=== PATIENT | female | born 2000 | race Two or more races ===

== ENCOUNTER 2024-03-30 18:25 | Inpatient (IN) | payer MEDICAID, SELFPAY ==
[2024-03-30] VITALS (88 sets, daily range): BP systolic 0–198; BP diastolic 0–126; PULSE 65–210; RESP 18–99; TEMP 36.3–36.9; O2SAT 79–100; BMI 58.9
--- NOTE | 2024-03-30 19:09 | ESHP_ITS ---
Documentation for date of: 03/30/24 OB Labor/Induct. HPI History of Present Illness Chief complaint: 23 y/o 39w 5d presents in labor at 4 cm : 2 Para: 1 Term pregnancies: 1 pregnancies: 0 Living children: 1 History of Abortions: Spontaneous and Elective: 0 History of Vaginal deliveries: 1 History of sections: No History of : No KRISTINA: 04/01/24 Gestational Age (weeks): 39 Gestational Age (days): 5 History of present illness: 23 y/o 39w 5d presents in labor at 4 cm vertex, membranes intact alana 2-3 minutes. Pt's has been uncomplicated, pt has a hx of nvdx1. EFW 3000g History of Present Dating criteria: LMP confirmed by 1st trimester US Ultrasounds: normal 1st trimester US and normal mid trimester US Obstetrical complications: none Medical complications: none Labs Maternal Blood Type: A Pos Labs: Positive: Rubella Titre, Negative: RPR, Hepatitis B, HIV, Chlamydia, Gonorrhea and Group Beta Strep and Unknown: Herpes Type 1, Herpes Type 2 and Covid-19 Review of Systems Review of Systems Systems Reviewed: All systems reviewed, normal except as documented Past Medical History Surgical History SURGICAL: Negative Section Meds Home Medications and Allergies Allergies Allergy/AdvReac Type Severity Reaction Status Date / Time No Known Allergies Allergy Verified 03/30/24 19:07 OB Exam Physical Exam Vital signs: Temp Pulse Resp BP 97.4 F 72 18 111/70 03/30/24 18:46 03/30/24 19:08 03/30/24 18:46 03/30/24 19:08 Constitutional Constitutional: moderate distress (Secondary to painful contractions) Routine HEENT Exam Head: Present normocephalic and atraumatic Eye: Present EOMI, PERRL and normal accommodation ENT: Present mucous membranes moist Routine Neck Exam Neck: Present full ROM Routine Respiratory Exam Respiratory: Absent respiratory distress Routine Cardiovascular Exam Cardiovascular: Present RRR Routine Abdominal Exam Abdominal: Present soft Comments: Gravid Uterus EFW 3000g Routine Exam External: Present normal urethra appearance; Absent lesions Detailed Labor and Delivery Exam Dilation (cm): 4 Effacement (%): 80 Cervix position: posterior station: -2 Consistency: soft Presentation: Vertex Membranes: intact Baseline heart rate: 130 monitor accelerations: 15x15 monitor decelerations: None residential variability: Moderate (11-25) Contraction frequency (min): 2-3 Contraction intensity: Moderate Routine Extremities Exam Extremities: Present full ROM Routine Back/Spine/Pelvis Exam Back/Spine: Present full ROM Routine Skin Exam Skin: Present intact, dry and warm Routine Neurological Exam Neurological: Present alert, oriented X3 and CN II-XII intact Routine Psychiatric Exam Psychiatric: Present normal affect and normal thought process OB Assessment & Plan Assessment and Plan (1) Normal labor: Status: Acute (2) with 39 completed weeks gestation: Status: Acute Additional Plan Induction method: none Plan: augmentation, anticipate NVD and consult prn Additional Plan Comment: Routine admit orders Consult anesthesia for an epidural Continuous EFM
[2024-03-30] MEDS: RINGERS LACTATED 1000 ML 1,000 ML 100 ML IV ×2 (19:15→21:59)
--- NOTE | 2024-03-30 19:37 | PD.LDPN ---
Documentation for date of: 03/30/24 OB Labor Progress Note Pain Control Pain control: tolerating well Pelvic Exam Dilation (cm): 4 Effacement (%): 80 station: -2 Contractions Monitor mode: External Contraction frequency: 2-3 Contraction duration: 40-60 Contraction intensity: Moderate Status status: Category l Assessment and Plan Assessment: other (Early labor) Plan OB labor note: continuous present management Comments: AROM performed - clear fluids Fetus is in OP presentation Plan to place pt on peanut ball and frequent turning Anticipate
[2024-03-30 19:58] LABS: Basophils % (Auto) 0 % (0-2.5); Eosinophils % (Auto) 0 % (0-10); Hematocrit 38.2 % (36.0-46.0); Hemoglobin 13.8 g/dL (12.0-16.0); Immature Granulocytes % (Auto) 1 % (0-0); Lymphocytes # (Auto) 1.9 Thou/mm3 (1.0-4.8); Lymphocytes % (Auto) 13 % (10-50); Mean Corpuscular HGB Conc 36.1 g/dl (31.0-37.0); Mean Corpuscular Hemoglobin 30.6 pg (25.0-35.0); Mean Corpuscular Volume 85 fL (80-100); Monocytes # (Auto) 0.8 Thou/mm3 (0.0-0.8); Monocytes % (Auto) 6 % (0-12); Neutrophils # (Auto) 11.3 Thou/mm3 (1.8-7.7); Neutrophils % (Auto) 80 % (37-80); Nucleated Red Blood Cell % 0 /100 WBC (0); Platelet Count 180 Thou/mm3 (140-440); Red Blood Count 4.51 Miln/mm3 (4.00-5.20); White Blood Count 14.1 Thou/mm3 (3.6-11.0)
--- NOTE | 2024-03-30 20:05 | PD.LDPN ---
Documentation for date of: 03/30/24 OB Labor Progress Note Pelvic Exam Dilation (cm): 5 Effacement (%): 90 station: 0 Amniotic membrane status: Ruptured Contractions Monitor mode: External Contraction frequency: 1-2 Contraction duration: 40-60 Contraction phase: Contraction Contraction intensity: Moderate Status status: Category l Assessment and Plan Assessment: active labor Plan OB labor note: continuous present management Comments: Pt is alana 1-2 minutes and making change, requesting an epidural Called anesthesia Anticipate
[2024-03-30 20:33] LABS: Syphilis Nonreactive (Nonreactive)
--- NOTE | 2024-03-30 21:07 | PD.LDPN ---
Documentation for date of: 03/30/24 OB Labor Progress Note Pain Control Pain control: epidural Pelvic Exam Dilation (cm): 6 Effacement (%): 90 station: +1 Amniotic membrane status: Ruptured Contractions Monitor mode: External Contraction frequency: 1-2 Contraction phase: Contraction Contraction intensity: Moderate Status status: Category l Assessment and Plan Assessment: active labor Plan OB labor note: continuous present management Comments: Pt is comfortable with the epidural Active labor Anticipate
[2024-03-30] MEDS: MINERAL OIL 30 ML UDC TOP (23:45)
[2024-03-30] MEDS: TRANEXAMIC ACID 1,000 MG IVPB 1,000 MG/100 ML BAG 200 MG IV (23:52)
[2024-03-30] MEDS: OXYTOCIN in NS 20 units 20 UNIT/1,000 ML BAG 125 UNIT IV (23:52)
[2024-03-31] VITALS (33 sets, daily range): BP systolic 0–109; BP diastolic 0–64; PULSE 70–114; RESP 16–18; TEMP 36.5–37; O2SAT 88–100
--- NOTE | 2024-03-31 00:08 | OBDSUM_ITS ---
Data (Schmidt) Data Hx Section: No Maternal Blood Type: A Pos Rubella Titre: Positive RPR: Non-reactive Labs: Negative: RPR, Hepatitis B, HIV, Chlamydia, Gonorrhea and Group Beta Strep and Unknown: Herpes Type 1 and Herpes Type 2 : 2 Para: 1 Term: 1 : 0 Livin : 0 Delivery Data (Schmidt) Labor Data Stimulated/Augmented: No Induction: No ROM Date: 03/30/24 ROM Time: 19:35 Rupture Type: AROM Amniotic Fluid: Clear Delivery Data EDC: 04/01/24 EDC calculated by:: LMP/early US confirmation Labor Onset Stage 1 Date: 03/30/24 Labor Onset Stage 1 Time: 18:40 Labor Onset Stage 2 Date: 03/30/24 Labor Onset Stage 2 Time: 23:30 Delivery Date: 03/30/24 Delivery Time: 23:51 Gestational age (weeks): 39 Gestational age (days): 5 Placenta Delivery Date: 03/30/24 Placenta Delivery Time: 23:52 Delivered by: Roberta Vargas Delivery nurse: Hoda Fulton Project Management Consultant at delivery: No Support person(s) at delivery: FOB Other staff at delivery: Nurse Other staff at delivery: Nursery Nurse Other staff at delivery: Marleni Cruz Other staff at delivery: Naheed Farnsworth Delivery Method Delivery: Vaginal Delivery Type: Spontaneous Presentation: Vertex Position: OA Anesthesia Type Primary Anesthesia: Epidural Delivery Room Medications Other Intrapartum Medications: No Post Delivery Medications N/A: No Placenta Placenta Delivery: Spontaneous Placenta Cultures Obtained: No Placenta Sent for Examination: No Cord Sample: Cord Blood Obtained Episiotomy Episiotomy: None Lacerations #1: Vaginal: 1st degree Perineal repair Sutures used for repair: 3.0 Vicryl (CT) EBL Estimated blood loss (ml): 250 Umbilical Cord Umbilical Vessels: 3 Nuchal Cord: None Body Cord: None Additional Procedures Patient was complete at 2330. And after a few pushes patient had an of a viable male . 's anterior shoulder delivered with gentle downward traction subsequent delivery the posterior shoulder and the body without complications. Infant placed on mother's abdomen. Vigorous cry upon delivery. Cord was clamped. Cut by FOB. Cord blood obtained. Three-vessel cord noted. Placenta expelled spontaneously and intact. Patient sustained a small vaginal laceration. Repaired using a 3-[address] suture. Perineum intact. Excellent hemostasis achieved after vigorous fundal massage and removal of clots from posterior fornix. EBL 250. Sponge and needle count correct. Mother and baby stable, skin to skin and bonding LDR. Data (Schmidt) [place] Data Gender: Male Weight Grams: 3245 1 Minute Total: 9 5 Minute Total: 9
[2024-03-31] MEDS: IBUPROFEN TAB 400 MG TABLET 800 MG PO ×2 (00:57→08:32)
--- NOTE | 2024-03-31 06:02 | PD.LDPPPRG ---
Subjective Subjective Interval history: day 1. Patient is stable and afebrile doing well. Denies dizziness shortness of breath. Reports minimal lochia. Reports cramping and no other complaints. Exam Vital Signs Temp Pulse Resp BP Pulse Ox O2 Del Method 98.6 F 90 16 0/0 L 98 Room Air 03/31/24 01:45 03/31/24 01:45 03/31/24 01:45 03/31/24 02:00 03/31/24 01:41 03/30/24 23:07 Constitutional Constitutional: no acute distress Routine HEENT Exam Head: Present normocephalic and atraumatic Eye: Present EOMI, PERRL and normal accommodation ENT: Present mucous membranes moist Routine Neck Exam Neck: Present full ROM Routine Respiratory Exam Respiratory: Present chest non-tender, lungs clear, normal breath sounds and no resp distress Routine Cardiovascular Exam Cardiovascular: Present RRR Routine Abdominal Exam Abdominal: Present soft and normoactive bowel sounds Routine Exam Patient deferred: external exam Routine Extremities Exam Extremities: Present full ROM, pulses intact and normal capillary refill; Absent calf tenderness Routine Back/Spine/Pelvis Exam Back/Spine: Present full ROM Routine Skin Exam Skin: Present intact, dry and warm Routine Neurological Exam Neurological: Present alert, oriented X3 and CN II-XII intact Routine Psychiatric Exam Psychiatric: Present normal affect and normal thought process Objective Labs 03/30/24 18:50 Labs: Laboratory Results - last 24 hr 03/30/24 18:50 WBC 14.1 H RBC 4.51 Hgb 13.8 Hct 38.2 MCV 85 MCH 30.6 MCHC 36.1 RDW Std Deviation 40.0 Plt Count 180 Neut % (Auto) 80 Lymph % (Auto) 13 Sterling % (Auto) 6 Eos % (Auto) 0 Baso % (Auto) 0 Neut # (Auto) 11.3 H Lymph # (Auto) 1.9 Sterling # (Auto) 0.8 Eos # (Auto) 0.0 Baso # (Auto) 0.0 Immature Gran # (Auto) 0.10 H Absolute Nucleated RBC 0.00 Immature Gran % 1 H Nucleated RBC % 0 Syphilis Serology Nonreactive Blood Type A Positive Antibody Screen NEGATIVE Blood Bank Wristband ID Yes Assessment & Plan Problem List (1) Normal spontaneous vaginal delivery: Status: Acute (2) Encounter for care of lactating mother: Status: Acute (3) Normal labor: Status: Acute (4) with 39 completed weeks gestation: Status: Acute Plan Comment Plan Comment: Continue routine care Encouraged pt to hydrate more and ambulate more Continue breast feeding Anticipate discharge home tomorrow Time Spent With Patient Time: Total time spent is greater than 50% in coordination of care (as documented) at patient's floor/unit and/or counseling patient:
[2024-03-31 06:14] LABS: Basophils % (Auto) 0 % (0-2.5); Eosinophils % (Auto) 0 % (0-10); Immature Granulocytes % (Auto) 1 % (0-0); Immature Granulocytes Auto 0.16 Thou/mm3 (0.00-0.00); Lymphocytes # (Auto) 1.3 Thou/mm3 (1.0-4.8); Lymphocytes % (Auto) 6 % (10-50); Mean Corpuscular HGB Conc 35.3 g/dl (31.0-37.0); Mean Corpuscular Hemoglobin 30.5 pg (25.0-35.0); Mean Corpuscular Volume 87 fL (80-100); Monocytes # (Auto) 1.2 Thou/mm3 (0.0-0.8); Monocytes % (Auto) 6 % (0-12); Neutrophils # (Auto) 17.9 Thou/mm3 (1.8-7.7); Neutrophils % (Auto) 87 % (37-80); Nucleated Red Blood Cell % 0 /100 WBC (0); Platelet Count 147 Thou/mm3 (140-440); RDW Standard Deviation 40.9 fL (36.4-46.3); Red Blood Count 3.93 Miln/mm3 (4.00-5.20); White Blood Count 20.6 Thou/mm3 (3.6-11.0)
[2024-03-31] MEDS: ACETAMINOPHEN 325 MG TABLET 650 MG PO ×3 (06:18→23:36)
[2024-03-31] MEDS: PRENATAL VITAMIN/FE FUM/FA TABLET 1 TAB PO (08:32)
[2024-03-31] MEDS: DOCUSATE SOD 100 MG CAPSULE PO (08:32)
--- NOTE | 2024-03-31 17:16 | PD.LDDS ---
DS: Providers Provider Date of admission: 03/30/24 19:04 Primary care physician: Manav Juarez MD Admitting Provider: Roberta Vargas CNM Attending Provider on Admission: Roberta Vargas CNM Consults: 03/31/24 00:52 Referral Routine Comment: Attending Provider on DC: Osiris Lee MD Discharging Provider: Osiris Lee MD Anticipated date of discharge: 03/31/24 DS: Diagnosis Discharge Diagnosis (1) Normal spontaneous vaginal delivery: Status: Acute (2) Term delivered: Status: Acute Problem List Completed Was Problem List Reviewed/Reconciled?: Yes Summary/Hosp Course Brief History: 23 y/o 39w 5d presents in labor at 4 cm vertex, membranes intact alana 2-3 minutes. Pt's has been uncomplicated, pt has a hx of nvdx1. EFW 3000g Peripartum Data Delivery Method: Normal Vaginal Delivery Laceration Description: yes Procedures: Small first-degree perineal laceration repaired 1: Gender: Male Disposition of : home Status at Discharge Cognitive/behavioral status at discharge: Patient is resting comfortably in bed holding her . She is alert and oriented x 3 in no apparent distress she desires to go home right at 24 hours post Functional status at discharge: independent ambulation Overall status at discharge: patient is progressing back to baseline Time Spent with Patient Time attestation: Total time spent providing and/or coordinating discharge services: Time spent: Less than 30 minutes Specific discharge activities: Pelvic rest x 6 weeks. Exam Vital Signs Temp Pulse Resp BP Pulse Ox O2 Del Method 97.7 F 81 17 96/64 97 Room Air 03/31/24 16:30 03/31/24 16:30 03/31/24 16:30 03/31/24 16:30 03/31/24 16:30 03/31/24 16:30 Constitutional Constitutional: no acute distress Routine Abdominal Exam Abdominal: Present soft Comments: Fundus firm nontender Routine Extremities Exam Extremities: Present full ROM Routine Skin Exam Skin: Present intact, dry and warm Routine Psychiatric Exam Psychiatric: Present normal affect and normal thought process Discharge Plan Plan Patient Disposition: HOME (Self Care) Disposition Comment: stable Patient condition on transfer: Stable Prescriptions/Referrals Prescriptions/Med Rec: New ibuprofen 800 mg tablet 800 mg PO Q6H MDD 4 PRN (Reason: pain) Qty: 90 0RF docusate sodium [Colace] 100 mg capsule 100 mg PO BID Qty: 60 0RF lanolin 50 % ointment 1 applic topical TID PRN (Reason: skin irritation) Qty: 15 0RF Continued PNV [id number] fumarate-FA [] 28 mg iron- 800 mcg tablet 1 tab PO QDAY Referrals: Farooq Alvarez MD [Physician] - No Primary/Family,Physician [Referring Provider] - Roberta Vargas CNM [Certified Nurse Corporate Intern] - Patient/Caregiver Discharge Instructions Meds to Beds: No Discharge Activity: activity as tolerated Other Discharge Activity Instructions:: Follow-up with Roberta Vargas CNM in 3 weeks Other Discharge Diet Instructions: General Diet drink lots of fluid keep taking vitamins if breast-feeding. Education Materials: After Delivery Concerns, : Caring for Yourself Print Language: Lithuanian Stand Alone Forms: Renata Award Info., Patient Portal Info Letter Discharge Order Discharge Orders: Discharge (Routine); Ordered 03/31/24 Ordered By: Osiris Lee Planned Discharge Date 03/31/24
== END 2024-04-01 01:05 | disposition home or self-care (01) | DRG 560 ==
LOC: S4SX 03-31 02:18 → S4NX 03-31 02:28
PROVIDERS: Admitting Provider Nurse Practitioner Women's Health; PCP Family Medicine; Visit Provider Nurse Practitioner Women's Health
DX: O70.0 First degree perineal laceration during delivery (principal); Z37.0 Single live birth; Z3A.39 39 weeks gestation of pregnancy
CPT/HCPCS: 36415; 85025; 86780; 86850; 86900; 86901; J2590; J2795; J3490; J7120; A9270